=== PATIENT | female | born 1990 | race Caucasian/White ===

== ENCOUNTER 2022-12-13 03:05 | Inpatient (IN) ==
[2022-12-13] MEDS ORDERED: OXYTOCIN 30 UNITS/500 ML BAG IV PRN ×2 (03:53)
[2022-12-13] MEDS ORDERED: LIDOCAINE 1% LOCAL 20 ML VIAL INFIL PRN (03:53)
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
[2022-12-13 04:56] LABS: Hematocrit (blood only) 33.3 % (37.0-47.0); Hemoglobin 11.6 g/dl (12.0-16.0); Mean Corpuscular Hemoglobin 30.4 pg (25.0-34.0); Mean Corpuscular Hgb Conc 34.8 g/dL (32.0-36.0); Mean Corpuscular Volume 87.2 fL (80.0-100.0); Mean Platelet Volume 11.4 fL (9.4-12.4); Platelet Count 176 K/uL (130-400); RDW Coefficient of Variation 13.3 % (11.5-14.5); RDW Standard Deviation 41.7 fL (36.4-46.3); Red Blood Count 3.82 M/uL (4.20-5.40); White Blood Count 9.54 K/ul (4.8-10.8)
[2022-12-13 05:02] LABS: Albumin Globulin Ratio 0.9 (0.9-2); Albumin Level 3.2 gm/dl (3.4-5.0); BUN Creatinine Ratio 13.1 (10-20); Bilirubin,Total 0.2 mg/dl (0.2-1.0); Calcium 8.8 mg/dl (8.5-10.1); Creatinine Clr Calc Pharmacy 129.4 ml/min; Est GFR (African American) 107.3 ml/min; Est GFR (Non-African American) 92.6 ml/min; Globulin 3.5 gm/dl (2.5-4.0); Potassium 3.7 mmol/L (3.5-5.1); Total Protein 6.7 gm/dl (6.0-8.3)
[2022-12-13 05:11] LABS: INR 0.9 (0.9-1.1); Partial Thromboplastin Time 27.1 Seconds (21.0-31.0)
[2022-12-13] MEDS: LACTATED RINGER'S 1,000 ML IV PRN ×3 (05:25→16:03)
[2022-12-13] MEDS ORDERED: MAG SULFATE 4GM BOLUS FROM BAG IV ONE (05:40)
[2022-12-13] MEDS ORDERED: MAGNESIUM SULFATE / WTR 40 GM/1,000 ML BAG IV SCH (05:45)
[2022-12-13] MEDS ORDERED: LEVOTHYROXINE SODIUM 150 MCG TABLET PO SCH (06:30)
[2022-12-13 06:44] LABS: Total Protein Urine Random 15.5 mg/dl (0-11.9)
[2022-12-13 06:49] LABS: Creatinine Urine Random 46.5 mg/dl; Protein Creatinine Ratio Urine 0.3 (0-0.2)
[2022-12-13 11:18] LABS: Hematocrit (blood only) 34.2 % (37.0-47.0); Hemoglobin 11.8 g/dl (12.0-16.0); Mean Corpuscular Hemoglobin 30.1 pg (25.0-34.0); Mean Corpuscular Hgb Conc 34.5 g/dL (32.0-36.0); Mean Corpuscular Volume 87.2 fL (80.0-100.0); Mean Platelet Volume 11.4 fL (9.4-12.4); Platelet Count 190 K/uL (130-400); RDW Coefficient of Variation 13.3 % (11.5-14.5); RDW Standard Deviation 41.7 fL (36.4-46.3); Red Blood Count 3.92 M/uL (4.20-5.40); White Blood Count 8.08 K/ul (4.8-10.8)
[2022-12-13 11:47] LABS: Albumin Level 3.3 gm/dl (3.4-5.0); BUN Creatinine Ratio 11.4 (10-20); Bilirubin,Total 0.3 mg/dl (0.2-1.0); Calcium 8.5 mg/dl (8.5-10.1); Creatinine Clr Calc Pharmacy 137.6 ml/min; Est GFR (African American) 115.6 ml/min; Est GFR (Non-African American) 99.8 ml/min; Globulin 3.4 gm/dl (2.5-4.0); Potassium 4.1 mmol/L (3.5-5.1); Total Protein 6.7 gm/dl (6.0-8.3)
[2022-12-13] MEDS ORDERED: SODIUM CHLORIDE 0.9% INJ 10 ML VIAL ONE (13:16)
[2022-12-13] MEDS ORDERED: BUPIVACAINE 0.25% 30 ML VIAL ONE ×2 (13:16→14:43)
[2022-12-13] MEDS ORDERED: ePHEDrine sulfate 50 MG/ML AMP ONE (13:16)
[2022-12-13] MEDS ORDERED: LIDOCAINE 2%/EPINEPHRINE 1:200,000 20 ML SDV ONE ×2 (13:16→18:39)
[2022-12-13] MEDS ORDERED: fentaNYL citrate 100 MCG/2 ML VIAL ONE (13:16)
[2022-12-13] MEDS ORDERED: fentaNYL 2MCG/ML ROPIVACAINE 1.25MG/ML 100 ML BAG EPI ONE (13:17)
[2022-12-13] MEDS ORDERED: diphenhydrAMINE 50 MG/ML VIAL IV PRN ×2 (13:27→19:33)
[2022-12-13] MEDS ORDERED: ePHEDrine sulfate 50 MG/ML AMP IV PRN ×2 (13:27→19:33)
[2022-12-13] MEDS ORDERED: NALOXONE HCL 0.4 MG/1 ML VIAL/CARP IV PRN ×2 (13:27→19:33)
[2022-12-13] MEDS ORDERED: NALBUPHINE HCL INJ 10 MG/ML AMP IV PRN ×2 (13:27→19:33)
[2022-12-13] MEDS ORDERED: ONDANSETRON INJ 2 MG/ML 2 ML VIAL IV PRN ×2 (13:27→19:33)
[2022-12-13] MEDS ORDERED: fentaNYL 2MCG/ML ROPIVACAINE 1.25MG/ML 100 ML BAG EPI PRN (13:27)
[2022-12-13] MEDS ORDERED: NALOXONE HCL 1 MG in SODIUM CHLORIDE 0.9% 1000ML 1,000 ML IV PRN ×2 (13:27→19:33)
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
--- NOTE | 2022-12-13 15:14 | Communication Note ---
Date of Service: December 13, 2022 The patient stated having increasing labor pains. The epidural was bolused with 3mL of 0.25% bupivacaine. The patient's labor pains were improved. ZENA badillo.
--- NOTE | 2022-12-13 17:55 | Labor Progress Brief Note ---
Date of Service December 13, 2022 Rupture of membranes was performed this morning with a large amount of fluid I am not 100% sure that her membranes were ruptured before induction was indicated with a diagnosis of preeclampsia regardless she requested epidural after this on the Pitocin and did make some progress she then had some deep variables noted an IUPC was placed as well and a scalp clip tractions are definitely adequate in the tracing has improved substantially after stopping the Pitocin discussed with the patient the station is still -2 and progress is slow however I would like to try Pitocin again if we get into a pattern of deep variables again we may have to back off and consider alternate routes of delivery i.e. section Assessment & Plan Admission and Anticipated Discharge Date Admission Date: December 13, 2022 Results & Data ([facility]) Vital Signs (Past 12 Hours) Vital Signs Temp Pulse Resp BP Pulse Ox 12/13/22 17:52 61 99 12/13/22 17:47 60 98 12/13/22 17:44 61 161/94 H 12/13/22 17:42 62 98 12/13/22 17:37 74 99 12/13/22 17:32 62 99 12/13/22 17:27 72 99 12/13/22 17:22 96 H 98 12/13/22 17:17 70 97 12/13/22 17:12 66 98 12/13/22 17:07 68 97 12/13/22 17:02 59 L 97 12/13/22 16:57 60 96 12/13/22 16:58 98.2 F 60 20 142/83 H 12/13/22 16:52 58 L 97 12/13/22 16:47 64 97 12/13/22 16:44 62 140/77 12/13/22 16:42 63 97 12/13/22 16:37 70 97 12/13/22 16:32 69 97 12/13/22 16:29 68 132/75 12/13/22 16:27 75 97 12/13/22 16:22 59 L 97 12/13/22 16:17 63 96 12/13/22 16:13 58 L 146/78 H 12/13/22 16:12 63 97 12/13/22 16:07 69 97 12/13/22 16:02 67 97 12/13/22 15:59 16 12/13/22 15:59 16 12/13/22 15:57 71 96 12/13/22 15:52 68 97 12/13/22 15:47 64 96 12/13/22 15:43 78 131/74 12/13/22 15:42 70 97 12/13/22 15:37 73 98 12/13/22 15:32 69 96 12/13/22 15:27 72 97 12/13/22 15:28 64 126/69 12/13/22 15:22 64 95 12/13/22 15:17 56 L 95 12/13/22 15:13 58 L 127/69 12/13/22 15:12 59 L 96 12/13/22 15:07 58 L 96 12/13/22 15:02 74 96 12/13/22 14:57 58 L 98 12/13/22 14:58 60 134/74 12/13/22 14:54 98.1 F 73 20 133/76 12/13/22 14:52 66 98 12/13/22 14:49 59 L 138/75 12/13/22 14:47 63 97 12/13/22 14:43 64 145/73 H 12/13/22 14:42 64 98 12/13/22 14:37 71 99 12/13/22 14:32 73 98 12/13/22 14:27 68 97 12/13/22 14:28 70 142/76 H 12/13/22 14:00 20 12/13/22 14:00 20 12/13/22 14:22 97 12/13/22 14:22 73 12/13/22 14:22 63 139/67 12/13/22 14:17 60 143/74 H 98 12/13/22 14:12 65 97 12/13/22 14:13 67 145/76 H 12/13/22 14:07 71 144/76 H 99 12/13/22 14:02 75 99 12/13/22 14:01 72 138/72 12/13/22 13:59 82 135/73 12/13/22 13:57 72 133/73 99 12/13/22 13:55 73 139/75 12/13/22 13:52 79 100 12/13/22 13:53 71 149/82 H 12/13/22 13:47 82 99 12/13/22 13:42 79 99 12/13/22 13:37 78 99 12/13/22 13:32 85 97 12/13/22 13:06 98.1 F 79 22 153/82 H 12/13/22 13:02 83 195/110 H 12/13/22 13:03 86 184/90 H 12/13/22 12:04 64 18 147/87 H 12/13/22 12:03 73 165/86 H 12/13/22 12:02 75 159/96 H 12/13/22 11:05 98.1 F 75 20 159/87 H 12/13/22 10:01 83 18 144/81 H 12/13/22 08:59 20 12/13/22 08:59 98.2 F 20 12/13/22 09:00 71 130/67 12/13/22 07:59 20 12/13/22 07:59 20 12/13/22 07:57 72 136/80 12/13/22 07:01 16 12/13/22 07:01 98.1 F 16 12/13/22 07:00 69 139/87 12/13/22 06:25 72 132/66 Coding Level of Care Code None Diagnoses
--- NOTE | 2022-12-13 18:31 | Labor Progress Brief Note ---
Date of Service December 13, 2022 Pitocin was turned off and then back on however the recurrence of deep variable decelerations with each contraction returned cervix did reach 5 cm she is still -2 station she is having recurrent variables despite her Pitocin use and trying to be judicious in this is additionally there has been slow progress. The tracing improved substantially when the Pitocin is turned off at this stage I did offer her section I offered we could continue as well I discussed the risks of section at this stage I am worried the baby is in a high position and whenever we get contractions that are substantial she has a very deep variable with this I have suggested sections a very reasonable approach at this time but we could continue to try to take a break from Pitocin and continue further the patient wishes to choose now and I think this is very reasonable section. The patient was counseled to the nature of the procedure including alternatives such as labor. Risks were discussed including bleeding infection injury to bowel bladder ureter vessels and even baby. Deep Vein thrombosis, pulmonary embolus discussed. Breakdown of incision reviewed. Deep vein thrombosis pulmonary embolus hernia and failure of the incision to heal were discussed Patient verbalized understanding of this and was given ample time to ask questions Assessment & Plan Admission and Anticipated Discharge Date Admission Date: December 13, 2022 Results & Data ([facility]) Vital Signs (Past 12 Hours) Vital Signs Temp Pulse Resp BP Pulse Ox 12/13/22 18:27 73 100 12/13/22 18:22 78 99 12/13/22 18:17 74 99 12/13/22 18:12 77 99 12/13/22 18:13 66 152/88 H 12/13/22 18:01 20 12/13/22 18:01 20 12/13/22 18:07 68 99 12/13/22 18:02 66 99 12/13/22 17:59 60 147/85 H 12/13/22 17:57 64 100 12/13/22 17:52 61 99 12/13/22 17:47 60 98 12/13/22 17:44 61 161/94 H 12/13/22 17:42 62 98 12/13/22 17:37 74 99 12/13/22 17:32 62 99 12/13/22 17:27 72 99 12/13/22 17:22 96 H 98 12/13/22 17:17 70 97 12/13/22 17:12 66 98 12/13/22 17:07 68 97 12/13/22 17:02 59 L 97 12/13/22 16:57 60 96 12/13/22 16:58 98.2 F 60 20 142/83 H 12/13/22 16:52 58 L 97 12/13/22 16:47 64 97 12/13/22 16:44 62 140/77 12/13/22 16:42 63 97 12/13/22 16:37 70 97 12/13/22 16:32 69 97 12/13/22 16:29 68 132/75 12/13/22 16:27 75 97 12/13/22 16:22 59 L 97 12/13/22 16:17 63 96 12/13/22 16:13 58 L 146/78 H 12/13/22 16:12 63 97 12/13/22 16:07 69 97 12/13/22 16:02 67 97 12/13/22 15:59 16 12/13/22 15:59 16 12/13/22 15:57 71 96 12/13/22 15:52 68 97 12/13/22 15:47 64 96 12/13/22 15:43 78 131/74 12/13/22 15:42 70 97 12/13/22 15:37 73 98 12/13/22 15:32 69 96 12/13/22 15:27 72 97 12/13/22 15:28 64 126/69 12/13/22 15:22 64 95 12/13/22 15:17 56 L 95 12/13/22 15:13 58 L 127/69 12/13/22 15:12 59 L 96 12/13/22 15:07 58 L 96 12/13/22 15:02 74 96 12/13/22 14:57 58 L 98 12/13/22 14:58 60 134/74 12/13/22 14:54 98.1 F 73 20 133/76 12/13/22 14:52 66 98 12/13/22 14:49 59 L 138/75 12/13/22 14:47 63 97 12/13/22 14:43 64 145/73 H 12/13/22 14:42 64 98 12/13/22 14:37 71 99 12/13/22 14:32 73 98 12/13/22 14:27 68 97 12/13/22 14:28 70 142/76 H 12/13/22 14:00 20 12/13/22 14:00 20 12/13/22 14:22 97 12/13/22 14:22 73 12/13/22 14:22 63 139/67 12/13/22 14:17 60 143/74 H 98 12/13/22 14:12 65 97 12/13/22 14:13 67 145/76 H 12/13/22 14:07 71 144/76 H 99 12/13/22 14:02 75 99 12/13/22 14:01 72 138/72 12/13/22 13:59 82 135/73 12/13/22 13:57 72 133/73 99 12/13/22 13:55 73 139/75 12/13/22 13:52 79 100 12/13/22 13:53 71 149/82 H 12/13/22 13:47 82 99 12/13/22 13:42 79 99 12/13/22 13:37 78 99 12/13/22 13:32 85 97 12/13/22 13:06 98.1 F 79 22 153/82 H 12/13/22 13:02 83 195/110 H 12/13/22 13:03 86 184/90 H 12/13/22 12:04 64 18 147/87 H 12/13/22 12:03 73 165/86 H 12/13/22 12:02 75 159/96 H 12/13/22 11:05 98.1 F 75 20 159/87 H 12/13/22 10:01 83 18 144/81 H 12/13/22 08:59 20 12/13/22 08:59 98.2 F 20 12/13/22 09:00 71 130/67 12/13/22 07:59 20 12/13/22 07:59 20 12/13/22 07:57 72 136/80 12/13/22 07:01 16 12/13/22 07:01 98.1 F 16 12/13/22 07:00 69 139/87 Coding Level of Care Code None Diagnoses
[2022-12-13] MEDS ORDERED: OXYTOCIN 10 UNITS/ML 10ML VIAL ONE (18:39)
[2022-12-13] MEDS ORDERED: MoRPHine SULFATE PF 1 MG/ML 10 ML AMP/VIAL ONE (18:39)
[2022-12-13] MEDS ORDERED: CITRIC ACID/SODIUM CITRATE 15 ML UDC ONE (19:00)
[2022-12-13] MEDS ORDERED: MoRPHine SULFATE PF 1 MG/ML 10 ML AMP/VIAL INT SPINAL ONE (19:33)
[2022-12-13] MEDS ORDERED: NALOXONE HCL 0.08 MG in SYRINGE 1.8 ML IV PRN (19:33)
[2022-12-13] MEDS ORDERED: LACTATED RINGER'S 500 ML IV PRN (19:33)
[2022-12-13] MEDS ORDERED: MEPERIDINE HCL 25 MG/ML CARP/VIAL IV PRN (19:33)
[2022-12-13] MEDS ORDERED: DC INTRASPINAL MORPHINE SCH (19:45)
[2022-12-13] MEDS ORDERED: SODIUM CHLORIDE 0.9% 1000ML 1,000 ML IV SCH (19:45)
[2022-12-13] MEDS ORDERED: NO NARCOTICS OR SEDATIVES SCH (19:45)
--- NOTE | 2022-12-13 20:03 | Operative Report ---
PG Post Operative Report Pre & Post Diagnosis Operation Date: 12/13/22 18:30 <No data on this case meets the specified criteria> I identified the patient and participated in the time-out.: Yes Procedure Operation Date: 12/13/22 18:30 <No data on this case meets the specified criteria> Surgeon Dior Frias MD, FACOG Submarine Operator . Estimated Blood Loss 500 Findings Consistent with Post-Op Diagnosis Specimens cord blood, gases Description of Procedure Regional anesthetic had been given by anesthesia patient was prepped and draped with a leftward tilt preoperative antibiotics had been given in appropriate timing by anesthesiology. Once the prep was allowed to fully dry timeout was performed. Pickups with teeth were used to test the incision area was found to be adequate for incision as the patient did not feel sharp pain. Scalpel was used to make a Pfannenstiel incision on the lower abdomen. We then cut through the subcutaneous fat down to the level of the anterior rectus sheath fascia this was cut in the midline and then extended laterally with the curved Escoto scissors. At this stage we then placed 2 Kathy clamps on the anterior aspect of the fascia. Using the curved Escoto's we are able to dissect the fascia superiorly away from the rectus muscles. Care was taken to maintain hemostasis. Kathy clamps were then placed to the inferior aspect of the anterior sheath of the fascia. Fascia was then dissected away from the rectus muscles inferiorly towards the pubic bone. A Kathy was then placed in the midline both inferiorly and superiorly. This wa s to allow exposure by retraction rectus muscles were in the midline with were then able to cut through the peritoneum and then enter the peritoneal cavity. Opening was enlarged to allow exposure of the peritoneal cavity both superiorly and inferiorly. Once adequate space was obtained a bladder retractor was placed to expose the lower segment Metzenbaums were used to dissect the bladder flap inferiorly away from the uterus. This was done sharply bladder retractor was then repositioned to expose the lower segment of the uterus Fresh scalpel was used to make a low transverse incision on the uterus. Uterus was then entered bluntly with the operators finger, membranes ruptured and the opening was enlarged using the operators fingers bluntly pulling superiorly and inferiorly to allow exposure. Baby was delivered by first flexion of the head elevation of the head out of the pelvis and then pressure by the res habilitation assistant on the maternal abdomen. Baby's head was then delivered mouth and then nares were suctioned and then using gentle traction the baby was fully delivered. Live vigorous . Fluid was clear cord clamped and cut cord gases obtained cord blood obtained baby handed to pediatrics. Placenta removed was removed with traction we ensure the entire placenta was removed with a moist lap sponge into the uterus should be noted there was a loose nuchal cord which was passed over the head and the baby was in occiput posterior position the adnexa and uterus were normal otherwise Uterus was then exteriorized. IV Pitocin had been started by anesthesia tone improved there were no extensions the uterus was then closed using 0 Monocryl in a 2 layer closure the first layer closed in a running locked fashion from left to right and then a second closure from left to right in a running nonlocked fashion. At this stage hemostasis was excellent. Uterus was placed back in the peritoneal cavity with suction irrigation out and inspection of the uterus at this stage revealed excellent hemostasis Retractors were removed urine color was clear at this stage of the case we inspected the rectus muscles they were hemostatic fascia was closed with 0 Vicryl subcutaneous fat was irrigated and closed with 3-0 Vicryl skin closed with 4-0 subcuticular Monocryl I attest to the content of the Intraoperative Record and any orders documented therein. Any exceptions are noted below. OB Procedure Charges 87338
--- NOTE | 2022-12-13 20:33 | Anesthesia Procedure Note ---
Date of Service December 13, 2022 Anesthesia Post Epidural Note Vital Signs Vital Signs: Temp Pulse Resp BP Pulse Ox 98.1 F 92 H 18 142/66 H 100 12/13/22 20:08 12/13/22 20:31 12/13/22 20:28 12/13/22 20:28 12/13/22 20:31 Pain Intensity Abdomen: Pain Intensity: 1 Notes Mental Status: alert / awake / arousable and participated in evaluation Nausea / Vomiting: adequately controlled Pain: adequately controlled Airway Patency, RR, SpO2: stable & adequate BP & HR: stable & adequate Hydration State: stable & adequate Neuraxial Anesthesia: was administered and sensory block is resolving Anesthetic Complications: no major complications apparent and Pt Satisfied with anesthetic care Epidural: Removed without complications and With tip intact
--- NOTE | 2022-12-13 20:33 | Anesthesiology Progress Note ---
Date of Service December 13, 2022 Anesthesia Post Procedure Vital Signs Vital Signs: Temp Pulse Resp BP Pulse Ox 12/13/22 20:28 92 H 18 142/66 H 12/13/22 20:25 20 12/13/22 20:08 98.1 F 18 12/13/22 20:31 92 H 100 12/13/22 20:26 91 H 100 12/13/22 20:27 92 H 142/66 H 12/13/22 20:23 84 142/69 H 12/13/22 20:21 84 100 12/13/22 20:18 99 H 94 12/13/22 20:16 101 H 100 12/13/22 20:11 97 H 100 12/13/22 20:09 89 88 L 12/13/22 20:07 93 H 138/56 L 12/13/22 20:06 97 H 99 12/13/22 19:07 91 H 99 12/13/22 19:02 89 99 12/13/22 18:58 91 H 167/89 H 12/13/22 18:57 96 H 99 12/13/22 18:52 82 100 12/13/22 18:47 80 100 12/13/22 18:43 86 172/86 H 12/13/22 18:42 86 100 12/13/22 18:37 95 H 100 12/13/22 18:32 77 100 12/13/22 18:27 73 100 12/13/22 18:22 78 99 12/13/22 18:17 74 99 12/13/22 18:12 77 99 12/13/22 18:13 66 152/88 H 12/13/22 18:01 20 12/13/22 18:01 20 12/13/22 18:07 68 99 12/13/22 18:02 66 99 12/13/22 17:59 60 147/85 H 12/13/22 17:57 64 100 12/13/22 17:52 61 99 12/13/22 17:47 60 98 12/13/22 17:44 61 161/94 H 12/13/22 17:42 62 98 12/13/22 17:37 74 99 12/13/22 17:32 62 99 12/13/22 17:27 72 99 12/13/22 17:22 96 H 98 12/13/22 17:17 70 97 12/13/22 17:12 66 98 12/13/22 17:07 68 97 12/13/22 17:02 59 L 97 12/13/22 16:57 60 96 12/13/22 16:58 98.2 F 60 20 142/83 H 12/13/22 16:52 58 L 97 12/13/22 16:47 64 97 12/13/22 16:44 62 140/77 12/13/22 16:42 63 97 12/13/22 16:37 70 97 12/13/22 16:32 69 97 12/13/22 16:29 68 132/75 12/13/22 16:27 75 97 12/13/22 16:22 59 L 97 12/13/22 16:17 63 96 12/13/22 16:13 58 L 146/78 H 12/13/22 16:12 63 97 12/13/22 16:07 69 97 12/13/22 16:02 67 97 12/13/22 15:59 16 12/13/22 15:59 16 12/13/22 15:57 71 96 12/13/22 15:52 68 97 12/13/22 15:47 64 96 12/13/22 15:43 78 131/74 12/13/22 15:42 70 97 12/13/22 15:37 73 98 12/13/22 15:32 69 96 12/13/22 15:27 72 97 12/13/22 15:28 64 126/69 12/13/22 15:22 64 95 12/13/22 15:17 56 L 95 12/13/22 15:13 58 L 127/69 12/13/22 15:12 59 L 96 12/13/22 15:07 58 L 96 12/13/22 15:02 74 96 12/13/22 14:57 58 L 98 12/13/22 14:58 60 134/74 12/13/22 14:54 98.1 F 73 20 133/76 12/13/22 14:52 66 98 12/13/22 14:49 59 L 138/75 12/13/22 14:47 63 97 12/13/22 14:43 64 145/73 H 12/13/22 14:42 64 98 12/13/22 14:37 71 99 12/13/22 14:32 73 98 03/02/23 14:27 68 97 12/13/22 14:28 70 142/76 H 12/13/22 14:00 20 12/13/22 14:00 20 12/13/22 14:22 97 12/13/22 14:22 73 12/13/22 14:22 63 139/67 12/13/22 14:17 60 143/74 H 98 12/13/22 14:12 65 97 12/13/22 14:13 67 145/76 H 12/13/22 14:07 71 144/76 H 99 12/13/22 14:02 75 99 12/13/22 14:01 72 138/72 12/13/22 13:59 82 135/73 12/13/22 13:57 72 133/73 99 12/13/22 13:55 73 139/75 12/13/22 13:52 79 100 12/13/22 13:53 71 149/82 H 12/13/22 13:47 82 99 12/13/22 13:42 79 99 12/13/22 13:37 78 99 12/13/22 13:32 85 97 12/13/22 13:06 98.1 F 79 22 153/82 H 12/13/22 13:02 83 195/110 H 12/13/22 13:03 86 184/90 H 12/13/22 12:04 64 18 147/87 H 12/13/22 12:03 73 165/86 H 12/13/22 12:02 75 159/96 H 12/13/22 11:05 98.1 F 75 20 159/87 H 12/13/22 10:01 83 18 144/81 H 12/13/22 08:59 20 12/13/22 08:59 98.2 F 20 12/13/22 09:00 71 130/67 12/13/22 07:59 20 12/13/22 07:59 20 12/13/22 07:57 72 136/80 12/13/22 07:01 16 12/13/22 07:01 98.1 F 16 12/13/22 07:00 69 139/87 12/13/22 06:25 72 132/66 12/13/22 05:30 98.1 F 81 157/97 H 03/02/23 04:36 82 160/94 H 12/13/22 03:46 78 178/90 H 12/13/22 03:38 83 159/102 H 12/13/22 03:21 98.1 F 18 Pain Intensity Abdomen: Pain Intensity: 1 Transfer of Care Handoff Completed per policy Notes Mental Status: alert / awake / arousable and participated in evaluation Nausea / Vomiting: adequately controlled Pain: adequately controlled Airway Patency, RR, SpO2: stable & adequate BP & HR: stable & adequate Hydration State: stable & adequate Neuraxial Anesthesia: was administered and sensory block is resolving Anesthetic Complications: no major complications apparent and Pt Satisfied with anesthetic care
[2022-12-13 20:36] LABS: Base Excess Cord Arterial Bld -2.9 mEq/L (-9-1.8); CO2 Cord Arterial Blood 41 mmHg (39.1-73.5); HCO3 Cord Arterial Blood 23 mmol/L (19.7-28.5); Oxygen Sat Cord Arterial Blood 63.6 % (<60); PO2 Cord Arterial Blood 33 mmHg (4.1-31.7); pH Cord Arterial Blood 7.35 (7.1-7.38)
[2022-12-13 20:38] LABS: Base Excess Cord Venous Blood -3.9 mEq/L (-7.7-1.9); Cord Venous Blood HCO3 24 mmol/L (18.4-26.8); Cord Venous Blood PCO2 53 mmHg (30.4-57.2); Cord Venous Blood PO2 14 mmHg (14.1-43.3); Cord Venous Blood pH 7.26 (7.20-7.44); O2 Saturation Cord Venous Bld < 60.0 % (<68)
[2022-12-13] MEDS ORDERED: HYDROCORTISONE ACETATE 25 MG SUPP PR PRN (21:20)
[2022-12-13] MEDS ORDERED: MAGNESIUM HYDROXIDE SUSP 30 ML UDC PO PRN (21:20)
[2022-12-13] MEDS ORDERED: BENZOCAINE 20% AER SPR 82.5 GM CAN EXT PRN (21:20)
[2022-12-13] MEDS ORDERED: DIPHTHERIA/TETANUS/PERTUSSIS 0.5mL SYR/VIAL (Age 7+yrs) IM ONE (21:20)
[2022-12-13] MEDS ORDERED: SENNA 8.6 MG TAB PO PRN (21:20)
[2022-12-13] MEDS ORDERED: LACTATED RINGER'S 1,000 ML IV SCH (21:20)
[2022-12-13] MEDS: KETOROLAC 30 MG/ML VIAL IV PRN (21:49)
[2022-12-13] MEDS: DOCUSATE SODIUM 100 MG CAP PO SCH (22:54)
[2022-12-13] MEDS: SIMETHICONE 80 MG CHEW PO SCH (22:54)
[2022-12-13] MEDS: OXYTOCIN 20 UNITS in LACTATED RINGER'S 1,000 ML IV SCH (23:59)
[2022-12-14] MEDS ORDERED: SODIUM CHLORIDE 0.9% 250 ML IV PRN (00:30)
[2022-12-14] MEDS: KETOROLAC 30 MG/ML VIAL IV PRN ×2 (03:52→10:33)
[2022-12-14] MEDS ORDERED: CITRIC ACID/SODIUM CITRATE 15 ML UDC PO SCH (06:00)
--- NOTE | 2022-12-14 06:42 | Obstetrical Progress Note ---
Date of Service December 14, 2022 Assessment & Plan (1) care following delivery: 32 y/o female who presented at 39 6/7 weeks with SPROM. Patient had adequate contractions during labor but failed to progress. Patient then required a and is now POD1. GBS neg, Rh pos, RI. Patient had elevated BPs on admission - no ROLLINS, RUQ pain, or vision changes. Patient was pre-eclamptic without severe features. Continue to monitor. Satisfactory post progress. Tolerating PO - advance diet as tolerated. Encourage ambulation. c/b hypothyroidism - continue home synthroid 150 mcg c/b obesity Subjective Ambulation: ambulating normally Voiding: no voiding problems (moore in place) Passing Gas:: Yes Lochia:: Small Feeding Type:: breast feeding no n/v, tolerating liquids Physical Exam Gen: well appearing female in NAD HEENT: AT NC Resp: no increased work of breathing CV: clinically well perfused : uterus firm, non-tender at the level of the umbilicus, wound c/d/i LILIBETH dressing in place - no strike through Psych: appropriate mood and affect Neuro: alert and oriented Results & Data ([facility]) Vital Signs (Past 12 Hours) Vital Signs Temp Pulse Pulse Resp BP BP Pulse Ox 12/14/22 06:05 16 96 12/14/22 05:00 14 91 12/14/22 04:15 16 98 12/14/22 03:30 16 96 12/14/22 03:30 37.0 C 93 H 16 135/84 96 12/14/22 02:05 14 94 12/14/22 01:06 18 96 12/14/22 00:26 36.6 C 86 16 148/90 H 96 12/14/22 00:26 16 96 12/13/22 20:28 92 H 18 142/66 H 12/13/22 20:25 20 12/13/22 20:08 36.7 C 18 12/13/22 23:44 88 145/81 H 12/13/22 23:41 79 94 12/13/22 23:36 92 H 96 12/13/22 23:31 85 94 12/13/22 23:26 88 94 12/13/22 23:21 88 94 12/13/22 23:16 97 H 94 12/13/22 23:14 93 H 149/76 H 03/02/23 23:11 85 94 12/13/22 23:06 87 95 12/13/22 23:01 90 94 12/13/22 22:56 90 93 12/13/22 22:51 81 94 12/13/22 22:46 89 94 12/13/22 22:43 81 144/75 H 12/13/22 22:41 86 94 12/13/22 22:42 80 94 12/13/22 22:36 85 95 12/13/22 22:31 77 97 12/13/22 22:26 90 95 12/13/22 22:21 82 95 12/13/22 22:16 84 96 12/13/22 22:11 78 97 12/13/22 22:06 90 96 12/13/22 22:05 82 154/84 H 12/13/22 22:01 88 95 12/13/22 21:58 79 164/86 H 12/13/22 21:56 79 97 12/13/22 21:51 78 98 12/13/22 21:46 87 98 12/13/22 21:41 83 98 12/13/22 21:39 81 157/81 H 12/13/22 21:36 80 98 12/13/22 21:32 81 162/88 H 12/13/22 21:31 82 100 12/13/22 21:26 99 12/13/22 21:26 83 12/13/22 21:26 82 164/76 H 12/13/22 21:21 76 99 12/13/22 21:16 72 164/83 H 99 12/13/22 21:11 79 99 12/13/22 21:07 82 142/76 H 12/13/22 21:06 85 100 12/13/22 21:01 82 100 12/13/22 20:58 78 156/88 H 12/13/22 20:56 82 99 12/13/22 20:51 89 99 12/13/22 20:46 81 99 0302 20:45 86 143/86 H 12/13/22 20:41 93 H 98 12/13/22 20:36 90 99 12/13/22 20:31 92 H 100 12/13/22 20:26 91 H 100 12/13/22 20:27 92 H 142/66 H 12/13/22 20:23 84 142/69 H 12/13/22 20:21 84 100 12/13/22 20:18 99 H 94 12/13/22 20:16 101 H 100 12/13/22 20:11 97 H 100 12/13/22 20:09 89 88 L 12/13/22 20:07 93 H 138/56 L 12/13/22 20:06 97 H 99 12/13/22 19:07 91 H 99 12/13/22 19:02 89 99 12/13/22 18:58 91 H 167/89 H 12/13/22 18:57 96 H 99 12/13/22 18:52 82 100 12/13/22 18:47 80 100 12/13/22 18:43 86 172/86 H 12/13/22 18:42 86 100 O2 Del Method 12/14/22 06:05 12/14/22 05:00 12/14/22 04:15 12/14/22 03:30 12/14/22 03:30 Room Air 12/14/22 02:05 12/14/22 01:06 12/14/22 00:26 Room Air 12/14/22 00:26 12/13/22 20:28 12/13/22 20:25 12/13/22 20:08 12/13/22 23:44 12/13/22 23:41 12/13/22 23:36 12/13/22 23:31 12/13/22 23:26 12/13/22 23:21 12/13/22 23:16 12/13/22 23:14 12/13/22 23:11 12/13/22 23:06 12/13/22 23:01 12/13/22 22:56 12/13/22 22:51 12/13/22 22:46 12/13/22 22:43 12/13/22 22:41 12/13/22 22:42 12/13/22 22:36 12/13/22 22:31 12/13/22 22:26 12/13/22 22:21 12/13/22 22:16 12/13/22 22:11 12/13/22 22:06 12/13/22 22:05 12/13/22 22:01 12/13/22 21:58 12/13/22 21:56 12/13/22 21:51 12/13/22 21:46 12/13/22 21:41 12/13/22 21:39 12/13/22 21:36 12/13/22 21:32 12/13/22 21:31 12/13/22 21:26 12/13/22 21:26 12/13/22 21:26 12/13/22 21:21 12/13/22 21:16 12/13/22 21:11 12/13/22 21:07 12/13/22 21:06 12/13/22 21:01 12/13/22 20:58 12/13/22 20:56 12/13/22 20:51 12/13/22 20:46 12/13/22 20:45 12/13/22 20:41 12/13/22 20:36 12/13/22 20:31 12/13/22 20:26 12/13/22 20:27 12/13/22 20:23 12/13/22 20:21 12/13/22 20:18 12/13/22 20:16 12/13/22 20:11 12/13/22 20:09 12/13/22 20:07 12/13/22 20:06 12/13/22 19:07 12/13/22 19:02 12/13/22 18:58 12/13/22 18:57 12/13/22 18:52 12/13/22 18:47 12/13/22 18:43 12/13/22 18:42 Laboratory Results 12/14/22 06:36 12/13/22 10:57 Resident Activity Tracking Resident Involvement: Resident Care Provided Care Provided: OB Delivery
[2022-12-14 07:15] LABS: Basophils # (auto) 0.02 K/uL (0-0.2); Basophils % (auto) 0.2 %; Eosinophils # (auto) 0.04 K/uL (0-0.50); Eosinophils % (auto) 0.3 %; Hematocrit (blood only) 32.2 % (37.0-47.0); Hemoglobin 10.9 g/dl (12.0-16.0); Immature Granulocytes # (auto) 0.09 K/uL (0.01-0.20); Immature Granulocytes % (auto) 0.8 %; Lymphocytes % (auto) 21.6 %; Mean Corpuscular Hemoglobin 29.9 pg (25.0-34.0); Mean Corpuscular Hgb Conc 33.9 g/dL (32.0-36.0); Mean Corpuscular Volume 88.5 fL (80.0-100.0); Mean Platelet Volume 11.4 fL (9.4-12.4); Monocytes # (auto) 0.45 K/uL (0.11-0.59); Monocytes % (auto) 3.9 %; Neutrophils # (auto) 8.47 K/uL (1.40-6.50); Neutrophils % (auto) 73.2 %; Platelet Count 147 K/uL (130-400); RDW Coefficient of Variation 13.3 % (11.5-14.5); RDW Standard Deviation 42.7 fL (36.4-46.3); Red Blood Count 3.64 M/uL (4.20-5.40); White Blood Count 11.57 K/ul (4.8-10.8)
[2022-12-14] MEDS: OXYTOCIN 20 UNITS in LACTATED RINGER'S 1,000 ML IV SCH (07:55)
[2022-12-14] MEDS: PRENATAL VITAMIN 1 TAB PO SCH (09:03)
[2022-12-14] MEDS: SIMETHICONE 80 MG CHEW PO SCH ×4 (09:03→20:23)
[2022-12-14] MEDS: DOCUSATE SODIUM 100 MG CAP PO SCH ×2 (09:03→20:23)
[2022-12-14] MEDS: FERROUS SULFATE 325 MG TAB PO SCH (09:03)
[2022-12-14] MEDS ORDERED: MEPERIDINE HCL 50 MG/ML CARP IV PRN (13:33)
[2022-12-14] MEDS ORDERED: KETOROLAC 30 MG/ML VIAL IV PRN (13:33)
[2022-12-14] MEDS ORDERED: diphenhydrAMINE Capsule 25 MG CAP PO PRN (13:33)
[2022-12-14] MEDS ORDERED: PROMETHAZINE HCL 25 MG in SODIUM CHLORIDE 0.9% 50 ML IV PRN (13:33)
[2022-12-14] MEDS ORDERED: diphenhydrAMINE 50 MG/ML VIAL IV PRN (13:33)
[2022-12-14] MEDS ORDERED: ONDANSETRON INJ 2 MG/ML 2 ML VIAL IV PRN (13:33)
[2022-12-14] MEDS: oxyCODONE/ACETAMINOPHEN 5mg/325mg TAB PO PRN ×3 (14:10→21:14)
[2022-12-14] MEDS: IBUPROFEN 600 MG TAB PO PRN ×2 (17:47→21:13)
[2022-12-14] MEDS ORDERED: bisacodyL 5 MG TABEC PO SCH (20:00)
[2022-12-15] MEDS: oxyCODONE/ACETAMINOPHEN 5mg/325mg TAB PO PRN ×5 (02:42→20:18)
[2022-12-15] MEDS: IBUPROFEN 600 MG TAB PO PRN ×5 (02:42→20:18)
[2022-12-15] MEDS: LEVOTHYROXINE SODIUM 150 MCG TABLET PO SCH (06:25)
[2022-12-15 07:37] LABS: Hematocrit (blood only) 31.7 % (37.0-47.0); Hemoglobin 10.8 g/dl (12.0-16.0)
--- NOTE | 2022-12-15 07:46 | Obstetrical Progress Note ---
Date of Service December 15, 2022 Assessment & Plan (1) care following delivery: Day 2 status post primary . Patient doing well. Routine care. Blood pressures within normal range Subjective Ambulation: ambulating normally Voiding: no voiding problems (moore in place) Passing Gas:: Yes Lochia:: Small Feeding Type:: breast feeding no n/v, tolerating liquids Physical Exam Constitutional WD/WN, vitals as above Respiratory normal respiratory effort; no respiratory distress and no labored breathing Gastrointestinal (Abdomen) Inspection/Auscultation: abdomen normal to inspection; abdomen not distended Percussion/Palpation: abdomen soft; abdomen nontender, no guarding and abdomen not rigid Genitourinary OB Exam Abdomen: + fundal height Fundus: + firm and + relation to umbilicus (Below); not tender or not boggy Results & Data ([facility]) Vital Signs (Past 12 Hours) Vital Signs Temp Pulse Resp BP O2 Del Method 12/14/22 23:35 36.8 C 94 H 18 128/84 Room Air
[2022-12-15] MEDS: SIMETHICONE 80 MG CHEW PO SCH ×4 (07:52→20:18)
[2022-12-15] MEDS: PRENATAL VITAMIN 1 TAB PO SCH (07:52)
[2022-12-15] MEDS: DOCUSATE SODIUM 100 MG CAP PO SCH ×2 (07:53→20:18)
[2022-12-15] MEDS: FERROUS SULFATE 325 MG TAB PO SCH (07:53)
[2022-12-15] MEDS ORDERED: bisacodyL 10 MG SUPP PR PRN (20:00)
[2022-12-16] MEDS: IBUPROFEN 600 MG TAB PO PRN ×3 (00:42→08:57)
[2022-12-16] MEDS: oxyCODONE/ACETAMINOPHEN 5mg/325mg TAB PO PRN ×3 (00:42→08:57)
[2022-12-16] MEDS: SIMETHICONE 80 MG CHEW PO SCH (07:29)
[2022-12-16] MEDS: DOCUSATE SODIUM 100 MG CAP PO SCH (07:30)
[2022-12-16] MEDS: FERROUS SULFATE 325 MG TAB PO SCH (07:30)
[2022-12-16] MEDS: PRENATAL VITAMIN 1 TAB PO SCH (07:30)
[2022-12-16] MEDS: LEVOTHYROXINE SODIUM 150 MCG TABLET PO SCH (07:30)
--- NOTE | 2022-12-16 10:40 | Obstetrical Progress Note ---
Date of Service December 16, 2022 Assessment & Plan (1) care following delivery: Plan Stable, ready to go home. bps stable. said she was advised by Dr. Frias to call for appt in one wk to have dressing changed. she will call and plan for end of wk. checked on papdmp and no issues noted. rhpos, ri, bottle feeding. instructions reviewed, f/u next wk as noted. Day #:: 3 Subjective Ambulation: ambulating normally Voiding: no voiding problems Passing Gas:: Yes Diet Tolerance:: regular diet Lochia:: Small Feeding Type:: bottle feeding denies pain issues. ready to go home Constitutional: + as per Subjective / HPI Physical Exam Constitutional WD/WN, vitals as above Respiratory normal respiratory effort, lungs clear to auscultation Cardiovascular Rate/Rhythm: regular rate and regular rhythm Gastrointestinal (Abdomen) Inspection/Auscultation: abdomen normal to inspection and + abdominal surgical incision (LILIBETH dressing) Percussion/Palpation: abdomen soft Fundus firm 1-2cm down Musculoskeletal nt calves tr edema Neurologic grossly normal Psychiatric A+Ox3, euthymic affect Results & Data ([facility]) Vital Signs (Past 12 Hours) Vital Signs Temp Pulse Resp BP Pulse Ox O2 Del Method 12/16/22 07:49 97.5 F L 85 16 131/83 98 Room Air 12/16/22 01:10 97.7 F 77 18 134/77 97 Room Air
== END 2022-12-16 11:00 | disposition home or self-care (01) | DRG 788 ==
LOC: OPB 03:05 → 4S1 03:08 → 4E2 12-14 00:57

== ENCOUNTER 2025-01-04 06:58 | Inpatient (IN) ==
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
--- NOTE | 2024-12-28 09:30 | Anesthesiology Consultation ---
Date of Service December 28, 2024 Assessment & Plan (1) Encounter for pre-operative examination: Infectious disease screening: Per assessment on 12/28/24- No known recent infectious disease contacts or current infectious disease symptoms. Chart Review Chart Review: entry level marketing assistant initiated History Surgery Operation Date: 01/04/25 09:00 Proposed Procedures p Section (Delivery of Baby Through Abdominal Incision) - Melodie Antoine MD, FACOG Height/Weight Height: 5 ft 5 in Weight: 123.377 kg Allergies Allergy/AdvReac Type Severity Reaction Status Date / Time amoxicillin Allergy Mild HIVES Verified 12/28/24 08:28 Medications Home Medications Medication Instructions Recorded Confirmed Last Taken Euthyrox 150 mcg tablet 150 mcg PO .COMPLEX #35 tabs 11/16/24 12/28/24 Unknown (levothyroxine) aspirin 81 mg capsule 81 mg PO QAM 12/28/24 12/28/24 Unknown guaifenesin 1,200 mg tablet, 1,200 mg PO BID PRN prn 12/28/24 12/28/24 Unknown extended release 12 hr (Mucinex) vit with calcium-iron 1 tab PO QAM 12/28/24 12/28/24 Unknown fum-folic acid 60 mg-0.8 mg tablet Past Medical History Medical History HGSIL (high grade squamous intraepithelial lesion) on Pap smear of cervix History of pre-eclampsia (2022) Hypothyroidism PCOS (polycystic ovarian syndrome) Seasonal allergies Secondary amenorrhea Past Family History Family History Sister Endometriosis Father Colorectal cancer Denies family history of Ovarian cancer Breast cancer FH: pancreatic cancer Uterine cancer Past Surgical History Surgical History Hx of wisdom tooth extraction S/P adenoidectomy (1993) as a child S/P section (12/2022) S/P loop electrosurgical excision procedure unsure of date Social History Smoking Status: Never smoker Do You Dip or Chew Tobacco: No Hx Alcohol Use: Yes Alcohol Intake Frequency Comment: socially when not Hx Substance Use: No substance use type: does not use
[2025-01-04] MEDS: LACTATED RINGER'S 1,000 ML IV SCH ×2 (08:10→12:18)
[2025-01-04] MEDS ORDERED: OXYTOCIN 10 UNITS/ML VIAL ONE (08:34)
[2025-01-04] MEDS ORDERED: PHENYLEPHRINE HCL 25 MG/250 ML NSS IV ONE (08:34)
[2025-01-04] MEDS ORDERED: ONDANSETRON INJ 2 MG/ML 2 ML VIAL ONE (08:34)
[2025-01-04] MEDS ORDERED: MoRPHine SULFATE PF 1 MG/ML 10 ML AMP/VIAL ONE (08:35)
[2025-01-04] MEDS: ACETAMINOPHEN 500 MG TAB PO SCH (08:37)
[2025-01-04 08:51] LABS: Basophils # (auto) 0.03 K/uL (0.00-0.20); Basophils % (auto) 0.4 %; Eosinophils # (auto) 0.11 K/uL (0.00-0.50); Eosinophils % (auto) 1.4 %; Hematocrit (blood only) 34.8 % (37.0-47.0); Hemoglobin 11.8 g/dl (12.0-16.0); Immature Granulocytes # (auto) 0.03 K/uL (0.01-0.20); Immature Granulocytes % (auto) 0.4 %; Lymphocytes # (auto) 2.94 K/uL (1.20-3.40); Lymphocytes % (auto) 36.1 %; Mean Corpuscular Hemoglobin 29.1 pg (25.0-34.0); Mean Corpuscular Hgb Conc 33.9 g/dL (32.0-36.0); Mean Corpuscular Volume 85.7 fL (80.0-100.0); Mean Platelet Volume 11.4 fL (9.4-12.4); Monocytes # (auto) 0.54 K/uL (0.11-0.59); Monocytes % (auto) 6.6 %; Neutrophils # (auto) 4.49 K/uL (1.40-6.50); Neutrophils % (auto) 55.1 %; Platelet Count 207 K/uL (130-400); RDW Coefficient of Variation 12.7 % (11.5-14.5); RDW Standard Deviation 39.3 fL (36.4-46.3); Red Blood Count 4.06 M/uL (4.20-5.40); White Blood Count 8.14 K/ul (4.8-10.8)
--- NOTE | 2025-01-04 09:13 | History & Physical Bridge Note ---
Date of Service January 04, 2025 History & Physical Bridge Note I have examined the patient, reviewed the History & Physical and in the interval since the performance of the History & Physical I have noted the following changes of clinical significance: no changes noted
[2025-01-04] MEDS ORDERED: SODIUM CHLORIDE 0.9% 100 ML IV PRN (09:15)
[2025-01-04] MEDS ORDERED: NALOXONE HCL 0.4 MG/1 ML VIAL/CARP IV PRN (09:37)
[2025-01-04] MEDS ORDERED: NALOXONE HCL 1 MG in SODIUM CHLORIDE 0.9% 1,000 ML IV PRN (09:37)
[2025-01-04] MEDS ORDERED: HYDROmorphone INJ 0.5 MG/0.5 ML SYR IV PRN (09:37)
[2025-01-04] MEDS ORDERED: MoRPHine SULFATE 2 MG/ML CARP IV PRN (09:37)
[2025-01-04] MEDS ORDERED: diphenhydrAMINE 50 MG/ML VIAL IV PRN (09:37)
[2025-01-04] MEDS ORDERED: NALBUPHINE HCL INJ 10 MG/ML AMP IV PRN (09:37)
[2025-01-04] MEDS ORDERED: MEPERIDINE HCL 25 MG/ML CARP/VIAL IV PRN (09:37)
[2025-01-04] MEDS ORDERED: oxyCODONE HCL IR 5 MG TAB (IMMEDIATE RELEASE) PO PRN (09:37)
[2025-01-04] MEDS ORDERED: ONDANSETRON INJ 2 MG/ML 2 ML VIAL IV PRN (09:37)
[2025-01-04] MEDS ORDERED: PROMETHAZINE 6.25 MG/50.25 ML BAG IV PRN (09:37)
[2025-01-04] MEDS: CITRIC ACID/SODIUM CITRATE 15 ML UDC PO SCH (09:44)
[2025-01-04] MEDS ORDERED: DC INTRASPINAL MORPHINE SCH (09:45)
[2025-01-04] MEDS ORDERED: NO NARCOTICS OR SEDATIVES SCH (09:45)
[2025-01-04] MEDS: ceFAZolin 3000MG 3,000 MG/72.5 ML BAG IV SCH (10:12)
[2025-01-04] MEDS ORDERED: ePHEDrine sulfate 50 MG/ML AMP ONE (10:59)
[2025-01-04] MEDS ORDERED: GLYCOPYRROLATE 0.2 MG/ML VIAL ONE (10:59)
--- NOTE | 2025-01-04 11:24 | Operative Report ---
Post Operative Report Pre & Post Diagnosis Operation Date: 01/04/25 09:00 Pre-Op Diagnosis: 1. 39+wk iup 2 Prior section, desires repeat section. Post-Op Diagnosis: same I identified the patient and participated in the time-out.: Yes Procedure Operation Date: 01/04/25 09:00 Actual Procedures p Repeat Low Transverse Section - Melodie Antoine MD, FACOG Surgeon Melodie Antoine MD, FACOG Manufacturing Project Manager RN Quantitative Blood Loss (QBL) 938 Findings Consistent with Post-Op Diagnosis (viable male, apgars pending. normal uterus, tubes and ovaries bilaterally. ) Fluids 800cc Specimens cord blood Drains moore Anesthesia Type Spinal Complications none Disposition Accompanied Patient To Recovery: No Disposition: L&D Indications 34yo with cc of desires repeat c/s with history of prior c/s. Description of Procedure The patient was taken to the operating room and identified. After adequate anesthesia was obtained, she was placed in the supine position with a leftward tilt on the operating table and prepped and draped in the usual sterile fashion. A moore catheter had already been placed. The knife was used to create a Pfannensteil skin incision that was carried down to the underlying layer of fascia. The fascia was nicked in the midline and this opening was extended laterally using Escoto scissors. Kathy clamps were placed on the superior and inferior aspect of the fascial incision tenting it upward and the underlying rectus muscles were dissected off the overlying fascia both sharply and bluntly using Escoto scissors. The rectus muscles were bluntly in the midline. The peritoneal cavity was bluntly entered into. This opening was stretched. The bladder blade was placed. The vesicouterine peritoneum was elevated and opened up into and the bladder flap was created digitally and bladder blade was replaced. The knife was used to create a hysterotomy and this opening was stretched. The operators hand was placed through the hysterotomy and the bladder blade was removed. The head was elevated and flexed and with fundal pressure and use of vacuum, the head was delivered. Loose nuchal x 1 reduced. The shoulders and body were rapidly delivered. The cord was clamped and cut and the 's mouth and nares were bulb suction. The was handed off to the awaiting pediatricians. Cord blood was obtained. The placenta was manually expressed. The uterus was exteriorized and cleared of all clots and debris. Dilute IV Pitocin was begun. The uterine tone was improving. The hysterotomy was closed in a running interlocking fashion using 0 Vicryl followed by a second imbricating layer of 0 Vicryl. Small bleeding sites at the hysterotomy addressed with figure of eight sutures of 0-vicryl. The hysterotomy was hemostatic. The pelvis was suctioned. The uterus was returned to the abdomen. The gutters were cleared of all clots and debris. The hysterotomy was reinspected and noted to be hemostatic. The fascia was then closed in running fashion using 0 Vicryl. The subcutaneous fat was copiously irrigated and reapproximated using 2-0 chromic. The skin was closed in a subcuticular fashion using 4-0 monocryl. At this point the procedure was terminated. The patient was transferred to the recovery room in stable condition. All sponge, lap and needle counts are correct x2. I attest to the content of the Intraoperative Record and any orders documented therein. Any exceptions are noted below. OB Procedure Charges 28639
[2025-01-04] MEDS ORDERED: HYDROCORTISONE ACETATE 25 MG SUPP PR PRN (11:30)
[2025-01-04] MEDS ORDERED: LACTATED RINGER'S 1,000 ML IV SCH (11:30)
[2025-01-04] MEDS ORDERED: CALCIUM CARBONATE 500 MG CHEWABLE TAB PO PRN (11:30)
[2025-01-04] MEDS ORDERED: BENZOCAINE 20% SPRY 85 APPLN/85 GM CAN EXT PRN (11:30)
[2025-01-04] MEDS: OXYTOCIN 20 UNITS/LR 1,002 ML IV SCH (11:30)
[2025-01-04] MEDS ORDERED: SENNA 8.6 MG TAB PO PRN (11:30)
[2025-01-04] MEDS ORDERED: MAGNESIUM HYDROXIDE SUSP 30 ML UDC PO PRN (11:30)
[2025-01-04] MEDS: ePHEDrine sulfate 50 MG/ML AMP IV PRN (12:10)
[2025-01-04] MEDS: DIPHTHER/TETAN/PERTUS Vaccine (Tdap, Adol/Adult) 0.5mL IM ONE (12:22)
[2025-01-04] MEDS: KETOROLAC 30 MG/ML VIAL IV SCH (12:23)
[2025-01-04] MEDS ORDERED: Nursing to Pharmacy Communication SCH (14:00)
--- NOTE | 2025-01-04 15:16 | Anesthesiology Progress Note ---
Date of Service January 04, 2025 Anesthesia Post Procedure Vital Signs Vital Signs: Temp Pulse Resp BP Pulse Ox O2 Del Method 01/04/25 13:33 67 100/50 L 97 01/04/25 13:30 36.5 C 74 16 100/50 L 98 01/04/25 13:28 95 H 97 01/04/25 13:23 67 97 01/04/25 13:18 70 97 01/04/25 13:13 73 96 01/04/25 13:08 65 96 01/04/25 13:03 64 97 01/04/25 13:02 68 102/59 L 01/04/25 13:00 36.5 C 70 18 102/59 L 96 01/04/25 13:00 36.5 C 75 18 95/55 L 94 01/04/25 13:00 59 L 96/53 L 01/04/25 12:58 71 96 01/04/25 12:53 85 95 01/04/25 12:48 81 95 01/04/25 12:44 66 101/58 L 01/04/25 12:43 94 H 93 01/04/25 12:42 70 92/55 L 01/04/25 12:40 74 94/57 L 01/04/25 12:38 73 01/04/25 12:38 74 93/51 L 94 01/04/25 12:36 75 95/55 L 01/04/25 12:34 76 94/55 L 01/04/25 12:33 67 96 01/04/25 12:31 65 95/54 L 01/04/25 12:30 36.5 C 85 18 95/55 L 95 01/04/25 12:28 67 99/51 L 97 01/04/25 12:27 64 90/54 L 01/04/25 12:23 86 94 01/04/25 12:22 80 93/50 L 01/04/25 12:20 79 16 93/50 L 94 01/04/25 12:18 74 78/43 L 94 01/04/25 12:16 78 86/48 L 01/04/25 12:13 71 01/04/25 12:13 77 90/49 L 94 01/04/25 12:10 36.5 C 73 16 83/47 L 94 01/04/25 12:09 68 83/47 L 01/04/25 12:08 77 91/54 L 93 01/04/25 12:03 81 01/04/25 12:03 76 88/50 L 94 01/04/25 12:00 36.4 C L 76 16 88/53 L 01/04/25 12:00 71 88/53 L 01/04/25 11:58 78 95 01/04/25 11:56 90 94 01/04/25 11:53 79 97 01/04/25 11:50 36.5 C 67 18 93/52 L 96 01/04/25 11:50 101 H 93/52 L 01/04/25 11:48 82 98 01/04/25 11:43 75 95 01/04/25 11:40 36.5 C 67 16 106/54 L 95 01/04/25 11:39 75 106/54 L 01/04/25 11:38 74 96 01/04/25 11:37 70 92 01/04/25 11:33 102 H 98 01/04/25 11:30 36.5 C 84 16 120/65 01/04/25 11:29 84 120/65 01/04/25 10:14 72 134/83 01/04/25 09:12 70 123/73 01/04/25 08:30 20 01/04/25 08:30 20 01/04/25 08:00 18 01/04/25 08:00 18 01/04/25 07:36 36.4 C L 18 Room Air 01/04/25 07:30 18 01/04/25 07:30 36.4 C L 18 01/04/25 07:09 80 122/83 Pain Intensity Lower Abdomen: Pain Intensity: 1 Transfer of Care Handoff Completed per policy Notes Mental Status: alert / awake / arousable Patient Amnestic to Procedure: Yes Nausea / Vomiting: adequately controlled Pain: adequately controlled Airway Patency, RR, SpO2: stable & adequate BP & HR: stable & adequate Hydration State: stable & adequate Neuraxial Anesthesia: was administered and sensory block is resolving Anesthetic Complications: no major complications apparent and Pt Satisfied with anesthetic care
[2025-01-04] MEDS: SIMETHICONE 80 MG CHEW PO SCH (17:30)
[2025-01-04] MEDS: ACETAMINOPHEN 325 MG TAB PO SCH (17:36)
[2025-01-04] MEDS: MoRPHine SULFATE PF 1 MG/ML 10 ML AMP/VIAL INT SPINAL ONE (17:41)
[2025-01-04] MEDS: DOCUSATE SODIUM 100 MG CAP PO SCH (21:29)
[2025-01-05] MEDS: NALOXONE HCL 0.08 MG in SYRINGE 1.8 ML IV PRN (02:46)
[2025-01-05] MEDS ORDERED: diphenhydrAMINE 50 MG/ML VIAL IV PRN (03:38)
[2025-01-05] MEDS ORDERED: ZOLPIDEM TARTRATE 5 MG TAB PO PRN (03:38)
[2025-01-05] MEDS ORDERED: diphenhydrAMINE Capsule 25 MG CAP PO PRN (03:38)
[2025-01-05] MEDS ORDERED: ONDANSETRON INJ 2 MG/ML 2 ML VIAL IV PRN (03:38)
[2025-01-05] MEDS ORDERED: PROMETHAZINE 12.5 MG/50.5 ML BAG IV PRN (03:38)
[2025-01-05] MEDS ORDERED: HYDROmorphone INJ 0.5 MG/0.5 ML SYR IV PRN (03:38)
[2025-01-05] MEDS: oxyCODONE HCL IR 5 MG TAB (IMMEDIATE RELEASE) PO PRN (04:37)
[2025-01-05] MEDS ORDERED: ACETAMINOPHEN 500 MG TAB PO SCH (06:00)
[2025-01-05] MEDS ORDERED: CITRIC ACID/SODIUM CITRATE 15 ML UDC PO SCH (06:00)
[2025-01-05] MEDS: LEVOTHYROXINE SODIUM 150 MCG TABLET PO SCH (06:12)
[2025-01-05 06:16] LABS: Basophils # (auto) 0.02 K/uL (0.00-0.20); Basophils % (auto) 0.2 %; Eosinophils # (auto) 0.12 K/uL (0.00-0.50); Eosinophils % (auto) 1.2 %; Hematocrit (blood only) 30.9 % (37.0-47.0); Hemoglobin 10.5 g/dl (12.0-16.0); Immature Granulocytes # (auto) 0.06 K/uL (0.01-0.20); Immature Granulocytes % (auto) 0.6 %; Lymphocytes # (auto) 2.42 K/uL (1.20-3.40); Lymphocytes % (auto) 23.3 %; Mean Corpuscular Hemoglobin 29.3 pg (25.0-34.0); Mean Corpuscular Volume 86.3 fL (80.0-100.0); Mean Platelet Volume 10.7 fL (9.4-12.4); Monocytes # (auto) 0.63 K/uL (0.11-0.59); Monocytes % (auto) 6.1 %; Neutrophils # (auto) 7.12 K/uL (1.40-6.50); Neutrophils % (auto) 68.6 %; Platelet Count 188 K/uL (130-400); RDW Coefficient of Variation 12.8 % (11.5-14.5); RDW Standard Deviation 39.7 fL (36.4-46.3); Red Blood Count 3.58 M/uL (4.20-5.40); White Blood Count 10.37 K/ul (4.8-10.8)
--- NOTE | 2025-01-05 06:43 | Obstetrical Progress Note ---
Date of Service January 05, 2025 Assessment & Plan (1) Previous delivery, delivered: (2) delivery delivered: Plan 34 years at 39 week POG. # 1POD following Delivery Both mom and baby doing well. Continue care as per protocol. Encouraged nursing with mother's milk. Encouraged ambulation. Encouraged deep breathing. Plan to discharge tomorrow . Admission and Anticipated Discharge Date Admission Date: January 04, 2025 Supervising Physician Co-Signing Physician Notes Resident Physician Supervision Note: I interviewed and examined the patient. Discussed with Dr. Perez and agree with findings and plan as documented in the note. Any exceptions or clarifications are listed here: POD1 doing well, continue routine care. Documented By: Monalisa Hdz, DO Subjective 34 years delivered by [facility] at 39 week POG. # 1POD following delivery No active complains Both mom and baby doing well. Mom Lying comfortable on bed. Pain: Mild, intermittent, manageable on painkillers. Lochia: Moderate Diet: Regular OB diet Gas: Not aware of passing, but no abdominal distension Peeing: Passed Urine after moore's removal Ambulation: to Bathroom/ Corridor without any complication Answered her queries. Review of Systems Review of Systems: As per HPI Physical Exam Physical Exam: General: Alert and oriented. No acute distress. CVS: S1 S2+ No murmurs, regular rhythm. Respiratory: CTA bilaterally. No rhonchi, wheezes, or crackles. No increased work of breathing. Abdomen: Bowel sound +. Soft, nontender Uterus: Fundus firm and palpable few cm below the umbilicus. Incision site looks healthy: Dry, No swelling, Erythema Lower extremities: No LE edema. No deep calf pain. Results & Data Vital Signs (Past 12 Hours) Vital Signs Temp Pulse Resp BP Pulse Ox O2 Del Method 01/05/25 06:00 36.5 C 76 16 111/71 98 Room Air 01/05/25 03:00 18 97 01/05/25 02:00 18 95 01/05/25 01:30 36.5 C 71 16 113/73 95 Room Air 01/05/25 01:00 16 95 01/05/25 00:00 16 95 01/04/25 23:00 16 97 01/04/25 22:00 18 97 01/04/25 21:00 16 99 01/04/25 21:00 Room Air 01/04/25 21:00 36.5 C 69 16 125/81 99 Room Air 01/04/25 20:00 16 99 01/04/25 19:00 16 99 Resident Activity Tracking Resident Involvement: Resident Care Provided Care Provided: OB Delivery
[2025-01-05] MEDS: FERROUS SULFATE 325 MG TAB PO SCH (08:23)
[2025-01-05] MEDS: PRENATAL VITAMIN 1 TAB PO SCH (08:23)
[2025-01-05 08:39] VITALS: RESP 18
[2025-01-05] MEDS ORDERED: KETOROLAC 30 MG/ML VIAL IV PRN (11:25)
[2025-01-05] MEDS: IBUPROFEN 600 MG TAB PO SCH (11:31)
[2025-01-05] MEDS: bisacodyL 5 MG TABEC PO SCH (21:08)
[2025-01-06 06:31] LABS: Hematocrit (blood only) 29.2 % (37.0-47.0); Hemoglobin 9.8 g/dl (12.0-16.0)
--- NOTE | 2025-01-06 07:20 | Obstetrical Progress Note ---
Date of Service January 06, 2025 Assessment & Plan (1) Previous delivery, delivered: (2) delivery delivered: Plan 34 years at 39 week POG. # 2POD following Delivery Both mom and baby doing well. Discharge home today Follow up after 6 weeks for visit Admission and Anticipated Discharge Date Admission Date: January 04, 2025 Supervising Physician Co-Signing Physician Notes Resident Physician Supervision Note: I interviewed and examined the patient. Discussed with Dr. Perez and agree with findings and plan as documented in the note. Any exceptions or clarifications are listed here: Doing well, pod 2. Meeting milestones. Plan d/c. Instructions reviewed. Documented By: Lakesha Steinberg MD, FACOG Subjective 34 years delivered by [facility] at 39 week POG. # 2 POD following delivery No active complains Both mom and baby doing well. Mom Lying comfortable on bed. Pain: Mild, intermittent, manageable on painkillers. Lochia: Moderate Diet: Regular OB diet Gas: Aware of passing, but no abdominal distension Peeing: Passed Urine after moore's removal Ambulation: to Bathroom/ Corridor without any complication Answered her queries. Review of Systems Review of Systems: As per HPI Physical Exam Physical Exam: General: Alert and oriented. No acute distress. CVS: S1 S2+ No murmurs, regular rhythm. Respiratory: CTA bilaterally. No rhonchi, wheezes, or crackles. No increased work of breathing. Abdomen: Bowel sound +. Soft, nontender Uterus: Fundus firm and palpable few cm below the umbilicus. Incision site looks healthy: Dry, No swelling, Erythema Lower extremities: No LE edema. No deep calf pain. Results & Data Vital Signs (Past 12 Hours) Vital Signs Temp Pulse Resp BP Pulse Ox O2 Del Method 01/06/25 00:30 36.4 C L 91 H 18 125/80 97 Room Air 01/05/25 19:30 36.7 C 88 18 128/75 97 Room Air
[2025-01-06 08:23] VITALS: TEMP 98.2; O2SAT 99
[2025-01-06 08:36] VITALS: BP 111/71; PULSE 76
[2025-01-06] MEDS ORDERED: IBUPROFEN 600 MG TAB PO PRN (11:25)
[2025-01-06] MEDS ORDERED: bisacodyL 10 MG SUPP PR PRN (11:25)
[2025-01-06] MEDS ORDERED: ACETAMINOPHEN 325 MG TAB PO PRN (17:25)
[2025-01-10] MEDS ORDERED: LEVOTHYROXINE SODIUM 150 MCG TABLET PO SCH (06:30)
== END 2025-01-06 09:45 | disposition home or self-care (01) | DRG 788 ==
LOC: 4S1 06:58 → 4E2 13:55 → EDSTATUS 01-08 07:30
DX: Z3A.39 39 weeks gestation of pregnancy; O69.81X0 Labor and delivery complicated by cord around neck, without compression, not applicable or unspecified; Z91.040 Latex allergy status; Z37.0 Single live birth; E03.9 Hypothyroidism, unspecified; Z88.1 Allergy status to other antibiotic agents; Z79.82 Long term (current) use of aspirin; O99.284 Endocrine, nutritional and metabolic diseases complicating childbirth; E66.9 Obesity, unspecified; O34.211 Maternal care for low transverse scar from previous cesarean delivery; O99.214 Obesity complicating childbirth